=== PATIENT | male | born 1975 ===

== ENCOUNTER 2017-06-03 09:52 | Inpatient (IN) | payer BC, OTHER ==
[~2017-06-03] VITALS: Ht 168.9 cm; Wt 70.3 kg
--- NOTE | 2017-06-03 20:30 | NUR ---
INTAKE ASSESSMENT PT IS A/O X 4.V/S ARE STABLE.SPEECH IS CLEAR,AMBULATES WITH A STEADY GAIT.NO C/O PAIN OR S/S OF DISTRESS NOTED.PT DENIES ANY MEDICAL PROBLEMS.HE IS IN A STABLE CONDITION TO PROCEED TO DETOX UNIT.
[2017-06-03] MEDS ORDERED: ACETAMINOPHEN 325 MG TABLET PO PRN (20:45)
[2017-06-03] MEDS ORDERED: BUPRENORPHINE HCL 2 MG TAB.SUBL SL PRN (20:45)
[2017-06-03] MEDS ORDERED: LOPERAMIDE HCL 2 MG CAPSULE PO PRN ×2 (20:45)
[2017-06-03] MEDS ORDERED: HYDROXYZINE PAMOATE 25 MG CAPSULE PO PRN (20:45)
[2017-06-03] MEDS ORDERED: DICYCLOMINE HCL 20 MG TABLET PO PRN (20:45)
[2017-06-03] MEDS ORDERED: ONDANSETRON 4 MG/2 ML VIAL IM PRN (20:45)
[2017-06-03] MEDS ORDERED: ONDANSETRON ODT 4 MG TAB.RAPDIS SL PRN (20:45)
[2017-06-03] MEDS ORDERED: MAG HYDROX/AL HYDROX/SIMETH 30 ML LIQUID UDC PO PRN (20:45)
[2017-06-03] MEDS ORDERED: IBUPROFEN 600 MG TABLET PO PRN (20:45)
[2017-06-03] MEDS ORDERED: METHOCARBAMOL 750 MG TABLET PO PRN (20:45)
[2017-06-03] MEDS ORDERED: MIRALAX 17 GM POWD.PACK PO PRN (20:45)
[2017-06-03] MEDS ORDERED: CLONIDINE HCL 0.1 MG TABLET PO PRN (20:45)
[2017-06-03] MEDS ORDERED: MAGNESIUM HYDROXIDE 30 ML LIQUID UDC PO PRN (20:45)
[2017-06-03] MEDS ORDERED: diphenhydrAMINE 50 MG CAPSULE PO PRN (20:45)
[2017-06-03] MEDS ORDERED: LORAZEPAM 1 MG TABLET PO PRN ×2 (21:00)
[2017-06-03] MEDS ORDERED: LORAZEPAM 2 MG/1 ML VIAL IM PRN (21:00)
[2017-06-03 21:29] LABS: *AMPHETAMINE, URINE POSITIVE (NEGATIVE); *BARBITURATE, URINE NEGATIVE (NEGATIVE); *CANNABINOID, URINE POSITIVE (NEGATIVE); *COCCAINE, URINE NEGATIVE (NEGATIVE); *OPIATE, URINE POSITIVE (NEGATIVE); *PHENCYCLIDINE SCREEN,URINE NEGATIVE (NEGATIVE)
--- NOTE | 2017-06-03 21:30 | NUR ---
ADMISSION NOTE-- HT-5 FEET,6.5 INCHES. WT-155 POUNDS. B/P=111/75,T=95.5,HR=96,R=18,O2 SAT=95%. COWS=3 / CIWA=1. Admitting 41 y/o male to [facility] for Opiate/Meth/Etoh dependency.Pt also uses Marijuana once a week and started using DMT 2 days ago.Pt is A/O X 4.He lives alone at home.He denies having any allergies to food or medications,denies any medical problems.No c/o pain or s/s of acute distress noted.Skin is intact,warm and dry to touch.Breathing is even and non labored,no SOB noted.Abdomen is soft and palpable,with b/s present x 4.No c/o N/V/D noted.No history of seizures noted.Pt does not have a PCP.Education provided on HEP C,Smoking cessation, fall prevention,seizure disorder and substance use d/o.Pt placed on fall and seizure precautions.Pt oriented to room and unit,care plan and safety checks initiated.All safety measures in place per hospital policy,bed is locked in the lowest position,side rails up x 2,call light within reach,will continue to monitor. TREATMENT HX-- 1) ABSOLUTE DETOX - 18 MONTHS AGO. 2) STUDIO 12 - 7 YEARS AGO. 2) [facility] - 10 YEARS AGO. Pt stated that his longest sober period was for 18 months,about two and half years ago. DRUG USE HX-- 1)HEROIN - PT HAS BEEN SMOKING 3 TO 4 GRAMS OF HEROIN DAILY FOR THE PAST 18 MONTHS. LAST USED ON 06/03/17 AT 1600. 2)METH - PT HAS BEEN SMOKING UPTO 1 GRAM OF METH DAILY FOR THE PAST 18 MONTHS. LAST USED ON AT 1600. 3)VODKA - PT HAS BEEN DRINKING 1/5TH OF VODKA EVERY OTHER DAY FOR THE PAST 18 MONTHS. LAST DRINK WAS ON 06/02/17 AT NIGHT. 4)MARIJUANA - PT HAS BEEN SMOKING I GRAM A WEEK FOR THE PAST 18 MONTHS. LAST USED ON 06/03/17. 5)DMT -PT HAS BEEN SMOKING LESS THAN 0.5 GRAM FOR THE PAST 2 DAYS. LAST USED ON 06/03/16 A 1600. Addendum: 06/04/17 at 1411 by KAREN HIGGINS RN Pt denies having a PCP.
[2017-06-03] MEDS ORDERED: LORAZEPAM 1 MG TABLET PO ONE (22:00)
[2017-06-03] MEDS ORDERED: LORAZEPAM 1 MG TABLET ONE (22:04)
[2017-06-04] VITALS: BP 121/77
--- NOTE | 2017-06-04 | NUR ---
URINE DRUG SCREEN IS POSITIVE FOR OPIATES,AMPHETAMINES,BENZOS AND CANNABINOIDS.PT REFUSED BLOOD DRAW FOR LAB WORK,SAID "I DON'T LIKE NEEDLES".PT TEACHING AND PROMPTING IS NOT EFFECTIVE.
[2017-06-04 04:00] VITALS: BP 128/82
--- NOTE | 2017-06-04 06:41 | NUR ---
END OF SHIFT Pt is 41 y/o male admitted to [facility] for Opiate/Meth/Etoh dependency.Pt also uses Marijuana once a week and started using DMT 2 days ago.Pt is A/O X 4.He denies having any allergies to food or medications,denies any medical problems.No c/o pain or s/s of acute distress noted.No PRN meds given last night.Last COWS=1,CIWA=0 at 0400.Pt slept 7 hours,fluid intake was 697 mls,voided x 2.All safety measures in place,call light within reach,will continue to monitor.
--- NOTE | 2017-06-04 07:30 | NUR ---
START OF SHIFT Received report from night nurse. 41 year old male patient admitted on 06/03/17 for heroin, methamphetamine, ETOH, DMT and marijuana withdrawals. Pt is A/O x4. Denies allergies, regular diet, full code. Pt reports last use of substances was prior to admission. Denies medical history. Pt received 2mg Ativan one time and it was effective. Most recent COWS are 3, CIWA 1. Pt slept for 7 hours. No PRN medications needed or administered at night. V/S remain WNL. Pt is sleeping in bed at this time. Safety measures are in place, will continue to monitor.
[2017-06-04 08:10] VITALS: BP 116/73
[2017-06-04] MEDS ORDERED: TUBERCULIN,PURIF.PROT.DERIV. 5 TU/0.1 ML TEST ID ONE (09:00)
[2017-06-04] MEDS ORDERED: MULTIVITAMINS,THERAPEUTIC TABLET PO SCH (09:00)
[2017-06-04] MEDS ORDERED: BUPRENORPHINE HCL 2 MG TAB.SUBL SL SCH ×3 (09:00→13:00)
[2017-06-04] MEDS ORDERED: BUPRENORPHINE HCL 2 MG TAB.SUBL SL ONE (10:30)
--- NOTE | 2017-06-04 10:37 | NUR ---
PRN CLONIDINE PRN Clonidine administered as ordered for withdrawals, pt states he has bouts of hot flashes and cold chills, pt is restless. Will reassess.
--- NOTE | 2017-06-04 11:37 | NUR ---
REASSESSMENT Medication was effective, pt is resting in bed at this time, sleeping but arousable, RR even and unlabored.
[2017-06-04 12:29] VITALS: BP 120/82
--- NOTE | 2017-06-04 14:20 | NUR ---
AMA NOTE Pt left AMA, Pt refused to comply with treatment. Pt educated about the risks and consequences of leaving AMA, pt verbalized understanding but was adamant about leaving. Multiple staff members including doctors, patient advocates and nurses attempted to reason with pt without any success. VS WNL, skin intact pt denied any suicidal or homicidal ideations. Dr. Crisostomo notified. Pt was given a list of community resources, AMA forms explained and signed. all belongings returned to pt, he did not bring any home meds. Pt left facility AMA on 06/04/17 at 1420.
[2017-06-04] MEDS ORDERED: GABAPENTIN 300 MG CAPSULE PO SCH ×2 (15:00→21:00)
[2017-06-05] MEDS ORDERED: BUPRENORPHINE HCL 2 MG TAB.SUBL SL SCH ×2 (09:00→15:00)
[2017-06-06] MEDS ORDERED: BUPRENORPHINE HCL 2 MG TAB.SUBL SL SCH (09:00)
[2017-06-07] MEDS ORDERED: BUPRENORPHINE HCL 2 MG TAB.SUBL SL SCH (09:00)
== END 2017-06-04 14:20 | disposition left against medical advice (07) | DRG 894 ==
LOC: SRC 19:17
PROVIDERS: ADMIT Internal Medicine; ATTEND Internal Medicine
PROC: HZ2ZZZZ Detoxification Services for Substance Abuse Treatment (ICD-10-PCS; principal; 2017-06-03)
DX: F11.23 Opioid dependence with withdrawal (principal); F10.230 Alcohol dependence with withdrawal, uncomplicated; Y90.9 Presence of alcohol in blood, level not specified; F15.220 Other stimulant dependence with intoxication, uncomplicated
CPT/HCPCS: 80307; 80324; 80346; 80349; 80361; A4663